=== PATIENT | female | born 1945 | race Caucasian/White ===

== ENCOUNTER 2017-09-06 10:35 | Inpatient (IN) | payer MEDICARE, BC ==
--- NOTE | 2017-09-06 10:37 | EDM.PDOC ---
ED HPI GENERAL MEDICAL PROBLEM - General Chief Complaint: Neurological Problem Stated Complaint: VERY CONFUSED Time Seen by Provider: 09/06/17 10:37 Source of Information: Reports: Patient, Family (), Old Records, RN, RN Notes Reviewed History Limitations: Reports: Altered Mental Status - History of Present Illness INITIAL COMMENTS - FREE TEXT/NARRATIVE: Arrives from home by POV with pt's reporting that he left the house this morning while the pt was still sleeping, and return an hour or so later to find the pt awake but very confused. Pt acknowledges that she is confused. She doesn't know how she got to the hospital, why she is here, or what day it is. states pt did not feel well yesterday, but was not confused when she went to bed. Pt has had a sore throat and congestion for several days. Pt has been taking sudafed for a couple of days. states that he and the pt went on a [employer] cruise and got home a week ago. Shortly after returning home she began to have the congestion and sore throat. Duration: Constant Severity: Severe Improves with: Reports: None Worsens with: Reports: None - Related Data Allergies Allergy/AdvReac Type Severity Reaction Status Date / Time codeine Allergy Nausea and Verified 09/06/17 13:25 Vomiting Home Meds: Home Meds Acetaminophen [Tylenol Extra Strength] 1,000 mg PO Q6HR PRN 10/09/14 [History] Calcium Carbonate/Vitamin D3 [Calcium 500 + Vit D 200 Caplet] 2 tab PO DAILY 05/16 [History] Cetirizine [ZyrTEC] 10 mg PO DAILY 10/09/14 [History] Cholecalciferol (Vitamin D3) [Vitamin D] 1 tab PO DAILY 10/09/14 [History] LORazepam [Ativan] 0.5 mg PO BID PRN 10/09/14 [History] Multivitamin [Multiple Vitamins] 1 tab PO DAILY 10/09/14 [History] Venlafaxine [Effexor] 75 mg PO DAILY 10/09/14 [History] atorvaSTATin [Lipitor] 1 tab PO BEDTIME 10/09/14 [History] Hydrochlorothiazide [Hydrochlorothiazide] 12.5 mg PO DAILY 05/06/15 [History] Esomeprazole Magnesium [Nexium] 40 mg PO DAILY 10/06/15 [History] Past Medical History Other HEENT History: WEARS CORRECTIVE LENSES Other Cardiovascular History: HYPERTRIGYLCERIDEMIA Other Gastrointestinal History: GERD for 10 yrs and taking Nexium 40 mg daily. Other Genitourinary History: ATROPHIC VAGINITIS; DYSPAREUNIA Other Musculoskeletal History: POLYMYALGIA RHEUMATICA; DDD CERVICAL Other Neuro History: MYOFASCIAL PAIN LEFT; NECK PAIN LEFT; HX OF POLYMYALGIA RHEUMATICA Other Oncologic History: DUCTAL CARCINOMA OF BREAST - Past Surgical History Other HEENT Surgeries/Procedures: ADENOIDECTOMY Social & Family History - Tobacco Use Smoking Status *Q: Never Smoker Used Tobacco, but Quit: No Second Hand Smoke Exposure: No - Alcohol Use Days Per Week of Alcohol Use: 1 Number of Drinks Per Day: 1 Total Drinks Per Week: 1 - Recreational Drug Use Recreational Drug Use: No - Living Situation & Occupation Living situation: Reports: , with Spouse Occupation: Retired ED ROS GENERAL - Review of Systems Review Of Systems: ROS reveals no pertinent complaints other than HPI. - Physical Exam Exam: See Below Exam Limited By: Altered Mental Status General Appearance: Alert, No Apparent Distress Eye Exam: Bilateral Eye: EOMI, Normal Fundi, Normal Inspection, PERRL Ears: Normal External Exam, Normal Canal, Hearing Grossly Normal, Normal TMs Nose: No Blood, Other (mild nasal mucosa inflammation with injected inferior turbinates) Throat/Mouth: Normal Lips, Normal Teeth, Other (mild pharyngeal erythema with yellowish postnasal drip) Head Exam: Atraumatic, Normocephalic Neck: Normal Inspection, Supple, Non-Tender, Full Range of Motion, Other (no nuchal rigidity). No: Lymphadenopathy (L), Lymphadenopathy (R) Respiratory/Chest: No Respiratory Distress, Lungs Clear, Normal Breath Sounds, No Accessory Muscle Use, Chest Non-Tender Cardiovascular: Normal Peripheral Pulses, Regular Rate, Rhythm, No Edema, No Gallop, No JVD, No Murmur, No Rub, Tachycardia GI/Abdominal: Normal Bowel Sounds, Soft, Non-Tender, No Organomegaly, No Distention, No Abnormal Bruit (Female) Exam: Deferred Rectal (Female) Exam: Deferred Neuro Exam (Abbreviated): Alert, CN II-XII Intact, No Motor/Sensory Deficits, Confused, Disoriented, Memory Loss Recent Events Back Exam: Normal Inspection, Full Range of Motion. No: CVA Tenderness (L), CVA Tenderness (R) Extremities: Normal Inspection, Normal Range of Motion, Non-Tender, No Pedal Edema, Normal Capillary Refill Psychiatric: Anxious Skin Exam: Warm, Dry, Intact, Normal Color, No Rash Course - Vital Signs Last Recorded V/S: Last Vital Signs Temp 37.2 C 09/06/17 11:59 Pulse 93 09/06/17 11:59 Resp 16 09/06/17 11:59 BP 154/80 H 09/06/17 11:59 Pulse Ox 100 09/06/17 11:59 - Orders/Labs/Meds Orders: Active Orders 24 hr Category Date Time Status Blood Glucose Check, Bedside [] ONETIME Care 09/06/17 10:43 Active EKG 12 Lead [EKG Documentation Completion] [] STAT Care 09/06/17 10:43 Active Peripheral IV Care [] . DIRECTED Care 09/06/17 10:44 Active CULTURE BLOOD [] Stat Lab 09/06/17 11:11 Results CULTURE BLOOD [] Stat Lab 09/06/17 11:32 Received CULTURE STREP A CONFIRMATION [] Stat Lab 09/06/17 10:43 Results STREP SCRN A RAPID W CULT CONF [] Stat Lab 09/06/17 10:43 Results Sodium Chloride 0.9% [Normal Saline] 1,000 ml Med 09/06/17 12:25 Active IV .BOLUS Sodium Chloride 0.9% [Saline Flush] Med 09/06/17 10:43 Active 10 ml FLUSH ASDIRECTED PRN Blood Culture x2 Reflex Set [OM.PC] Stat Oth 09/06/17 10:43 Ordered Peripheral IV Insertion Adult [OM.PC] Stat Oth 09/06/17 10:43 Ordered Medication Orders Sodium Chloride (Normal Saline) 1,000 mls @ 999 mls/hr IV .BOLUS ONE Stop: 09/06/17 13:25 Last Admin: 09/06/17 12:38 Dose: 999 mls/hr Sodium Chloride (Saline Flush) 10 ml FLUSH ASDIRECTED PRN PRN Reason: Keep Vein Open Last Admin: 09/06/17 10:59 Dose: 10 ml Labs: Laboratory Tests 09/06/17 09/06/17 09/06/17 Range/Units 10:45 10:45 10:59 WBC 11.2 H (5.0-10.0) 10^3/uL RBC 4.32 (4.2-5.4) 10^6/uL Hgb 13.8 (12.0-16.0) g/dL Hct 38.3 (37.0-47.0) % MCV 88.7 D (80-100) fL MCH 31.9 (27.0-34.0) pg MCHC 36.0 H (33.0-35.0) g/dL Plt Count 247 (150-450) 10^3/uL Neut % (Auto) 75.6 H (42.2-75.2) % Lymph % (Auto) 18.0 L (20.5-50.1) % [place] % (Auto) 4.9 (2-8) % Eos % (Auto) 1.3 (1.0-3.0) % Baso % (Auto) 0.2 (0.0-1.0) % Sodium 134 L (135-145) mmol/L Potassium 3.7 (3.6-5.0) mmol/L Chloride 99 L (101-111) mmol/L Carbon Dioxide 23.0 (21.0-31.0) mmol/L Anion Gap 15.7 BUN 17 (7-18) mg/dL Creatinine 0.8 (0.6-1.3) mg/dL Est Cr Clr Drug Dosing 51.01 mL/min Estimated GFR (MDRD) > 60 BUN/Creatinine Ratio 21.25 Glucose 164 H (74-105) mg/dL POC Glucose 184 H (83-110) mg/dl Lactic Acid (0.5-2.2) mmol/L Calcium 9.6 (8.4-10.2) mg/dl Magnesium 1.8 (1.8-2.5) mg/dL Total Bilirubin 0.8 (0.2-1.0) mg/dL AST 31 (10-42) IU/L ALT 26 (10-60) IU/L Alkaline Phosphatase 74 (42-121) IU/L Ammonia (11-35) umol/L Creatine Kinase 129 (26-174) IU/L Troponin I < 0.02 (0.00-0.02) ng/ml Total Protein 8.1 (6.7-8.2) g/dl Albumin 4.8 (3.2-5.5) g/dl Globulin 3.3 Albumin/Globulin Ratio 1.45 Urine Color (YELLOW) Urine Appearance (CLEAR) Urine pH (5.0-9.0) Ur Specific [place] (1.005-1.030) Urine Protein (NEGATIVE) Urine Glucose (UA) (NEGATIVE) Urine Ketones (NEGATIVE) Urine Occult Blood (NEGATIVE) Urine Nitrite (NEGATIVE) Urine Bilirubin (NEGATIVE) Urine Urobilinogen (0.2-1.0) mg/dL Ur Leukocyte Esterase (NEGATIVE) Urine RBC /HPF Urine WBC (0-5/HPF) /HPF Ur Epithelial Cells /HPF Amorphous Sediment (0/HPF) /HPF Urine Bacteria (0-FEW/HPF) /HPF Urine Opiates Screen (NEGATIVE) Ur Oxycodone Screen (NEGATIVE) Urine Methadone Screen (NEGATIVE) Ur Barbiturates Screen (NEGATIVE) U Tricyclic Antidepress (NEGATIVE) Ur Phencyclidine Scrn (NEGATIVE) Ur Amphetamine Screen (NEGATIVE) U Methamphetamines Scrn (NEGATIVE) Urine MDMA Screen (NEGATIVE) U Benzodiazepines Scrn (NEGATIVE) Urine Cocaine Screen (NEGATIVE) U Marijuana (THC) Screen (NEGATIVE) Ethyl Alcohol < 5 mg/dL 09/06/17 09/06/17 09/06/17 Range/Units 11:11 11:11 11:29 WBC (5.0-10.0) 10^3/uL RBC (4.2-5.4) 10^6/uL Hgb (12.0-16.0) g/dL Hct (37.0-47.0) % MCV (80-100) fL MCH (27.0-34.0) pg MCHC (33.0-35.0) g/dL Plt Count (150-450) 10^3/uL Neut % (Auto) (42.2-75.2) % Lymph % (Auto) (20.5-50.1) % [place] % (Auto) (2-8) % Eos % (Auto) (1.0-3.0) % Baso % (Auto) (0.0-1.0) % Sodium (135-145) mmol/L Potassium (3.6-5.0) mmol/L Chloride (101-111) mmol/L Carbon Dioxide (21.0-31.0) mmol/L Anion Gap BUN (7-18) mg/dL Creatinine (0.6-1.3) mg/dL Est Cr Clr Drug Dosing mL/min Estimated GFR (MDRD) BUN/Creatinine Ratio Glucose (74-105) mg/dL POC Glucose (83-110) mg/dl Lactic Acid 3.4 H (0.5-2.2) mmol/L Calcium (8.4-10.2) mg/dl Magnesium (1.8-2.5) mg/dL Total Bilirubin (0.2-1.0) mg/dL AST (10-42) IU/L ALT (10-60) IU/L Alkaline Phosphatase (42-121) IU/L Ammonia 26 (11-35) umol/L Creatine Kinase (26-174) IU/L Troponin I (0.00-0.02) ng/ml Total Protein (6.7-8.2) g/dl Albumin (3.2-5.5) g/dl Globulin Albumin/Globulin Ratio Urine Color Yellow (YELLOW) Urine Appearance Slightly cloudy (CLEAR) Urine pH 8.5 (5.0-9.0) Ur Specific [place] 1.015 (1.005-1.030) Urine Protein 100 H (NEGATIVE) Urine Glucose (UA) Negative (NEGATIVE) Urine Ketones Trace H (NEGATIVE) Urine Occult Blood Small H (NEGATIVE) Urine Nitrite Negative (NEGATIVE) Urine Bilirubin Negative (NEGATIVE) Urine Urobilinogen 0.2 (0.2-1.0) mg/dL Ur Leukocyte Esterase Small H (NEGATIVE) Urine RBC 10-20 H /HPF Urine WBC 5-10 H (0-5/HPF) /HPF Ur Epithelial Cells Rare /HPF Amorphous Sediment Few (0/HPF) /HPF Urine Bacteria Few (0-FEW/HPF) /HPF Urine Opiates Screen (NEGATIVE) Ur Oxycodone Screen (NEGATIVE) Urine Methadone Screen (NEGATIVE) Ur Barbiturates Screen (NEGATIVE) U Tricyclic Antidepress (NEGATIVE) Ur Phencyclidine Scrn (NEGATIVE) Ur Amphetamine Screen (NEGATIVE) U Methamphetamines Scrn (NEGATIVE) Urine MDMA Screen (NEGATIVE) U Benzodiazepines Scrn (NEGATIVE) Urine Cocaine Screen (NEGATIVE) U Marijuana (THC) Screen (NEGATIVE) Ethyl Alcohol mg/dL 09/06/17 Range/Units 11:29 WBC (5.0-10.0) 10^3/uL RBC (4.2-5.4) 10^6/uL Hgb (12.0-16.0) g/dL Hct (37.0-47.0) % MCV (80-100) fL MCH (27.0-34.0) pg MCHC (33.0-35.0) g/dL Plt Count (150-450) 10^3/uL Neut % (Auto) (42.2-75.2) % Lymph % (Auto) (20.5-50.1) % [place] % (Auto) (2-8) % Eos % (Auto) (1.0-3.0) % Baso % (Auto) (0.0-1.0) % Sodium (135-145) mmol/L Potassium (3.6-5.0) mmol/L Chloride (101-111) mmol/L Carbon Dioxide (21.0-31.0) mmol/L Anion Gap BUN (7-18) mg/dL Creatinine (0.6-1.3) mg/dL Est Cr Clr Drug Dosing mL/min Estimated GFR (MDRD) BUN/Creatinine Ratio Glucose (74-105) mg/dL POC Glucose (83-110) mg/dl Lactic Acid (0.5-2.2) mmol/L Calcium (8.4-10.2) mg/dl Magnesium (1.8-2.5) mg/dL Total Bilirubin (0.2-1.0) mg/dL AST (10-42) IU/L ALT (10-60) IU/L Alkaline Phosphatase (42-121) IU/L Ammonia (11-35) umol/L Creatine Kinase (26-174) IU/L Troponin I (0.00-0.02) ng/ml Total Protein (6.7-8.2) g/dl Albumin (3.2-5.5) g/dl Globulin Albumin/Globulin Ratio Urine Color (YELLOW) Urine Appearance (CLEAR) Urine pH (5.0-9.0) Ur Specific [place] (1.005-1.030) Urine Protein (NEGATIVE) Urine Glucose (UA) (NEGATIVE) Urine Ketones (NEGATIVE) Urine Occult Blood (NEGATIVE) Urine Nitrite (NEGATIVE) Urine Bilirubin (NEGATIVE) Urine Urobilinogen (0.2-1.0) mg/dL Ur Leukocyte Esterase (NEGATIVE) Urine RBC /HPF Urine WBC (0-5/HPF) /HPF Ur Epithelial Cells /HPF Amorphous Sediment (0/HPF) /HPF Urine Bacteria (0-FEW/HPF) /HPF Urine Opiates Screen Negative (NEGATIVE) Ur Oxycodone Screen Negative (NEGATIVE) Urine Methadone Screen Negative (NEGATIVE) Ur Barbiturates Screen Negative (NEGATIVE) U Tricyclic Antidepress Negative (NEGATIVE) Ur Phencyclidine Scrn Negative (NEGATIVE) Ur Amphetamine Screen Positive H (NEGATIVE) U Methamphetamines Scrn Negative (NEGATIVE) Urine MDMA Screen Negative (NEGATIVE) U Benzodiazepines Scrn Positive H (NEGATIVE) Urine Cocaine Screen Negative (NEGATIVE) U Marijuana (THC) Screen Negative (NEGATIVE) Ethyl Alcohol mg/dL Meds: Medications Generic Name Dose Route Start Last Admin Trade Name Freq PRN Reason Stop Dose Admin Sodium Chloride 1,000 mls @ 999 mls/hr 09/06/17 12:25 09/06/17 12:38 Normal Saline IV 09/06/17 13:25 999 mls/hr .BOLUS ONE Administration Sodium Chloride 10 ml 09/06/17 10:43 09/06/17 10:59 Saline Flush FLUSH 10 ml ASDIRECTED PRN Administration Keep Vein Open Discontinued Medications Generic Name Dose Route Start Last Admin Trade Name Freq PRN Reason Stop Dose Admin Ceftriaxone Sodium 1 gm 09/06/17 12:25 09/06/17 12:38 Rocephin IVPUSH 09/06/17 12:26 1 gm ONETIME ONE Administration - Radiology Interpretation Free Text/Narrative:: CT Head: no acute findings per Rad. report. CT Results Date: 09/06/17 Departure - Departure Time of Disposition: 12:40 (admit to Dr. Melissa) Disposition: Refer to Observation Condition: Undetermined Clinical Impression: Altered mental status, unspecified Qualifiers: Altered mental status type: disorientation Qualified Code(s): R41.0 - Disorientation, unspecified - Discharge Information - My Orders Last 24 Hours: My Active Orders 09/06/17 10:43 Blood Glucose Check, Bedside [] ONETIME EKG 12 Lead [EKG Documentation Completion] [RC] STAT CULTURE STREP A CONFIRMATION [RM] Stat STREP SCRN A RAPID W CULT CONF [RM] Stat Sodium Chloride 0.9% [Saline Flush] 10 ml FLUSH ASDIRECTED PRN Blood Culture x2 Reflex Set [OM.PC] Stat Peripheral IV Insertion Adult [OM.PC] Stat 09/06/17 10:44 Peripheral IV Care [RC] . DIRECTED 09/06/17 11:11 CULTURE BLOOD [BC] Stat 09/06/17 11:32 CULTURE BLOOD [BC] Stat 09/06/17 12:25 Sodium Chloride 0.9% [Normal Saline] 1,000 ml IV .BOLUS - Assessment/Plan Last 24 Hours: My Active Orders 09/06/17 10:43 Blood Glucose Check, Bedside [RC] ONETIME EKG 12 Lead [EKG Documentation Completion] [RC] STAT CULTURE STREP A CONFIRMATION [RM] Stat STREP SCRN A RAPID W CULT CONF [] Stat Sodium Chloride 0.9% [Saline Flush] 10 ml FLUSH ASDIRECTED PRN Blood Culture x2 Reflex Set [OM.PC] Stat Peripheral IV Insertion Adult [OM.PC] Stat 09/06/17 10:44 Peripheral IV Care [RC] . DIRECTED 09/06/17 11:11 CULTURE BLOOD [BC] Stat 09/06/17 11:32 CULTURE BLOOD [BC] Stat 09/06/17 12:25 Sodium Chloride 0.9% [Normal Saline] 1,000 ml IV .BOLUS
[2017-09-06] MEDS: Sodium Chloride 0.9% 10 ML Syringe FLUSH PRN (10:59)
--- NOTE | 2017-09-06 11:35 | CT ---
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 No known trau ma. Scan technique: Volume acquisition of data unenhanced CT scan of the head and brain obtained with pat iekody lying supine on the Siemens multi slice scanner [place], [place]. All data archived in the PACS system for storage and study (bone/brain windows). Interpretation: 1. Dependent air-fluid levels in the maxillary antra bilaterally. Nasal septum is straight in the mid line. Frontal, ethmoid, sphenoid and mastoid sinuses are symmetrically pneumatized without inflammato ry change of a mass or bony wall destruction. 2. Uniformly thick bony calvarium. No sign of supratentorial or posterior fossa mass lesion. No hydro cephalus. 3. No focal areas of ischemic infarct this patient with symmetric johnson-white matter pattern. 4. No sign of acute intracerebral/intraventricular/subarachnoid bleed. 5. No abnormal extracerebral/intracranial epidural or subdural hematomas. 6. Cerebellum and brainstem unremarkable. CONCLUSION: Acute bilateral maxillary sinusitis. No sign of intracranial mass, hydrocephalus or infar ct (ischemic/hemorrhagic) and
[2017-09-06 12:00] LABS: CHLORIDE,CL 99 mmol/L (101-111); SODIUM,NA 134 mmol/L (135-145)
--- NOTE | 2017-09-06 12:21 | CR ---
CLINICAL HISTORY: 72-year-old female with severely altered mental status and cough. Emergency CT scan of the head "unremarkable". INTERPRETATION: No acute cardiopulmonary abnormality. Faint atheromatous calcifications arch of the aorta. Normal cardiac silhouette. No cephalization of flow, signs of alveolar edema or dependent pleural eff usion. No lung mass or hilar lymphadenopathy. No focal lobar pneumonia. No atelectasis/collapse. No pneumothorax.
[2017-09-06] MEDS ORDERED: cefTRIAXone 1 GM Vial IVPUSH ONE (12:25)
[2017-09-06] MEDS ORDERED: Sodium Chloride 0.9% 1,000 ML IV ONE (12:25)
[2017-09-06] MEDS ORDERED: Morphine 2 MG/ML Syringe IVPUSH PRN (14:09)
[2017-09-06] MEDS ORDERED: Acetaminophen/oxyCODONE 325-5 MG Tab PO PRN (14:09)
[2017-09-06] MEDS ORDERED: fentaNYL 100 MCG/2 ML SDV IVPUSH ONE (14:42)
--- NOTE | 2017-09-06 15:38 | PCM.SN ---
- Free Text/Narrative Note: Lumbar Puncture. requesting lumbar puncture related to altered mental status and Headache. Informed consent obtained from Pt's and Patient. Pt medicated w 25 mcg fentanyl. sitting position, 1% lidocaine to L3 L4 interspace and L2 L3 interspace. Unable to direct 24 ga needle, 22 gauge needle x 2 to L3 L4 interspace and x 2 to L2 L3 interspace x 2. Pos CSF, neg heme, neg parasthesia at L2 L3 interspace. Opening pressure at 36 cm in sitting position. CSF clear. 4 vials of CSF obtained for a total of 17 ml of fluid. Needle removed, site dressed w bandaid after hemostasis. Pt tolerated well. Pt assisted to supine position and medicated with 25 mcg of fentanyl for persistent headache. Procedure time 1455 to 1515.
[2017-09-06] MEDS: Acetaminophen 325 MG Tab PO PRN (16:14)
[2017-09-06] MEDS: Ondansetron 4 MG Tab.DIS PO PRN ×2 (17:05→20:42)
[2017-09-06] MEDS: Sodium Chloride 0.9% 1,000 ML IV SCH (17:07)
--- NOTE | 2017-09-06 21:20 | HP ---
CHIEF COMPLAINT: Increased confusion. HISTORY OF PRESENTING ILLNESS: Mrs. Cynthia Cotto is a 72-year-old female with medical history significant for ductal carcinoma in situ of the breast, status post radiation treatment, presented to the ER today with complaints of having confusion. She was brought in by her who was concerned about her health as she appeared to be more confused and not feeling well for the last 2 to 3 days. The patient had extensive workup done in the emergency room including a CT scan of the head which showed evidence of sinusitis, but no acute intracranial pathology, and she was also noted to have lactic acidosis and was admitted to the hospital for further work up. At this time, the patient is awake and alert. She is able to recognize her at bedside. She is able to tell she is at the hospital and this is September, but she thinks this is 2009. She does not remember anything in the last 2 to 3 days what happened. She knows she was on the cruise ship, but she does not have any clue that she was at [facility] yesterday and she does not know what happened yesterday. As per the , they were in the cruise for 3 weeks and they came back last week to their home. She did not feel sick while on the cruise ship. She did not encounter any sick contacts while on the cruise ship. They visited [place]. She denied any fevers or chills in the last few days, but complains of having headache which is mostly in the frontal region. She grades the headache as 3 to 4/10 in intensity. No clear aggravating factors. No clear relieving factors. She also complains of some mild neck pain, but no neck stiffness. No photophobia at this time. She denies any chest pain. No shortness of breath. She complains of having cough leading to sore throat like feeling. She denied any abdominal pain. She denies any nausea, vomiting, or diarrhea in the last few days. The patient denied any history of chest pains on exertion. No history of dyspnea on exertion. No history of orthopnea or paroxysmal nocturnal dyspnea. The patient denied any history of hematemesis, hematochezia, or melenic stools. Normal bowel and bladder habits otherwise. REVIEW OF SYSTEMS: Hard to obtain at this point as the patient seems to be confused, unsure about the reliability of her history at this time. PAST MEDICAL HISTORY: Significant for: 1. Ductal carcinoma in situ. 2. History of urinary tract infection. 3. Gastroesophageal reflux disease. 4. Hyperlipidemia. 5. Hypertension. 6. Fibromyalgia. PAST SURGICAL HISTORY: Significant for laparoscopic tubal ligation and C- section. FAMILY HISTORY: Significant for cancer in her mother, who is at this time. SOCIAL HISTORY: No history of tobacco use. History of occasional alcohol intake. ALLERGIES: The patient noted to have allergies to codeine and environmental allergies. HOME MEDICATIONS: 1. Effexor 75 mg twice a day. 2. Hydrochlorothiazide 12.5 mg daily. 3. Tylenol 1000 mg every 6 hours as needed. 4. Cetirizine 10 mg daily. 5. Ativan 0.5 mg twice a day as needed. 6. Nexium 40 mg daily. 7. Multivitamin 1 tablet daily. 8. Lipitor 2 tablets at bedtime. PHYSICAL EXAMINATION: Vital Signs: Temperature of 97.8, pulse of 84, blood pressure 155/86, respiratory rate of 20, saturating at 100% on room air. General Appearance: The patient is awake and alert, but not completely oriented to time, place, and person. Cardiovascular System: S1, S2 heard with normal intensity. No gallops. Respiratory System: Clear to auscultation bilaterally. No wheeze. No crepitations. Abdomen: Soft. Bowel sounds positive. Nontender. No rigidity. Extremities: No edema in bilateral lower extremities. Neurology: No gross focal neurological deficits. LABORATORY DATA: WBC 11.2, hemoglobin 13.8, hematocrit 38.3, platelet count 247. Sodium 134, potassium 3.7, chloride 99, bicarb 23, BUN 17, creatinine 0.8, glucose 164, lactic acid 3.4, magnesium 1.8. AST 31, ALT 26, alkaline phosphatase 74. Ammonia 26. Troponin less than 0.02. Urinalysis shows small leukocyte esterase, 10 to 20 rbc's, 5 to 10 wbc's, and few bacteria. Urine toxicology screen positive for amphetamine and benzodiazepine. ASSESSMENT: 1. Acute encephalopathy. 2. Hypertension. 3. Hyperlipidemia. 4. Fibromyalgia. PLAN: 1. Acute encephalopathy. The patient presents with acute encephalopathy, exact etiology is not clear. Her urinalysis is not suggestive of any acute urinary tract infection. Chest x-ray looks benign. CT scan of the head did not show any acute intracranial pathology except for sinusitis. Given her confusion for the last 3 days and leukocytosis and lactic acidosis, one has to think of possible meningitis though she lacks evidence of any photophobia or neck rigidity at this time. I will try to do a lumbar puncture at this time. We will keep her under droplet isolation. We will follow the CSF analysis and start her on antibiotics as appropriate. We will keep her hydrated with IV fluids. 2. Sinusitis. The patient is noted to have acute sinusitis, but hard to believe that this is leading to her confusion. The patient was on cough medications, unsure if that is leading to any medication interactions as she is noted to be on Ativan, which is possible, but we will closely follow. Keep her hydrated with IV fluids. 3. Hypertension. The patient's blood pressure seems to be in acceptable range. Continue with current antihypertensive medications. 4. Hyponatremia. This is mild in nature. Could be resulting from hydrochlorothiazide use. We will have her on IV normal saline. Recheck a basic metabolic panel in a.m. 5. DVT prophylaxis. We will have her on Lovenox for DVT prophylaxis once we have the lumbar puncture obtained. 6. Code status. The patient wants to be full code. Discussed with family members at bedside. Discussed with Dr. Cates regarding the plan of care. Reviewed the labs and medications. Reviewed the old charts. [facility] /[id number]
[2017-09-06] MEDS: atorvaSTATin 20 MG Tab PO SCH (23:04)
[2017-09-06] MEDS: LORazepam 0.5 MG Tab PO PRN (23:05)
[2017-09-07] MEDS: Acetaminophen 325 MG Tab PO PRN ×3 (01:41→15:04)
[2017-09-07] MEDS: Sodium Chloride 0.9% 1,000 ML IV SCH ×3 (01:44→22:16)
[2017-09-07] MEDS: Omeprazole 20 MG Cap.CR PO SCH (06:02)
[2017-09-07 07:19] LABS: CHLORIDE,CL 100 mmol/L (101-111); SODIUM,NA 133 mmol/L (135-145)
[2017-09-07] MEDS ORDERED: Hydrochlorothiazide 25 MG Tab PO SCH (09:00)
[2017-09-07] MEDS: Ondansetron 4 MG Tab.DIS PO PRN (09:19)
[2017-09-07] MEDS: Enoxaparin 40 MG/0.4 ML Syringe SUBCUT SCH (09:23)
[2017-09-07] MEDS: LORazepam 0.5 MG Tab PO PRN (09:38)
[2017-09-07] MEDS: Loratadine 10 MG Tab PO SCH (11:01)
[2017-09-07] MEDS: Calcium Carbonate/Vitamin D3 1250 MG-200 Unit Tab PO SCH (11:43)
[2017-09-07] MEDS: Multivitamins,Therapeutic Tab PO SCH (11:44)
[2017-09-07] MEDS: Cholecalciferol (Vitamin D3) 400 Unit Tab PO SCH (11:44)
[2017-09-07] MEDS: guaiFENesin/Dextromethorphan 100-10 MG/5 ML Soln 5 ML Cup PO PRN ×2 (12:26→17:57)
[2017-09-07] MEDS: Potassium Chloride 10 MEQ Tab.ER PO SCH ×2 (12:27→17:59)
[2017-09-07] MEDS: diphenhydrAMINE 50 MG/ML SDV IVPUSH PRN ×2 (12:27→18:00)
[2017-09-07] MEDS: Pantoprazole 40 MG Vial IVPUSH SCH (12:28)
[2017-09-07] MEDS ORDERED: LORazepam 1 MG Tab PO PRN (12:39)
[2017-09-07] MEDS ORDERED: cefTRIAXone 2 GM Vial IVPUSH SCH (13:00)
[2017-09-07] MEDS: Ondansetron 4 MG/2 ML SDV IV SCH ×2 (13:16→22:17)
--- NOTE | 2017-09-07 13:49 | PN ---
DATE: 09/07/2017 SUBJECTIVE: Mrs. Cynthia Cotto is a 72-year-old female with medical history significant for ductal carcinoma in situ of the breast, status post radiation treatment, admitted with acute encephalopathy and noted to have acute sinusitis as per the CT scan of the head. For the last 24 hours, the patient underwent lumbar puncture and further analysis of the CSF was benign without any evidence of meningitis as per the CSF analysis. She continues to have headache, which is mostly on the frontal side and she continues to have sinusitis. She also complains of nausea and is unable to tolerate any oral pills. She complains of having dizziness on ambulation. She denies any chest pain. No shortness of breath. No abdominal pain. She continues to have mild confusion, though improved from yesterday. She denies any diarrhea. No complaints of nausea or vomiting. No complaints of changes in her vision. No complaints of tingling or numbness to her extremities or increased weakness to her extremities. Denies any difficulty swallowing. REVIEW OF SYSTEMS: Cardiovascular, respiratory, gastrointestinal, neurology, constitutional were all evaluated. PHYSICAL EXAMINATION: Vital Signs: Temperature of 97.8, pulse of 86, blood pressure of 172/86, respiratory rate of 20, saturating at 100% on room air. General Appearance: The patient is well oriented to time, place, and person. Follows commands spontaneously. Cardiovascular System: S1 and S2 heard with normal intensity. No gallops. Respiratory System: Clear to auscultation bilaterally. No wheeze. No crepitations. Abdomen: Soft. Bowel sounds positive. Nontender. No rigidity. Extremities: No edema bilateral in lower extremities. Neurologic: No gross focal neurological deficits. MEDICATIONS: Reviewed. Continue with: 1. Tylenol 650 every 4 hours as needed for pain. 2. Lipitor 40 mg at bedtime. 3. Calcium carbonate and vitamin D, 2 tablets daily. 4. Ceftriaxone 2 g IV daily. 5. Robitussin 10 mL q.6 hours as needed. 6. Benadryl 25 mg IV q.6 hours as needed for congestion. 7. Lovenox 40 mg subcutaneous daily. 8. Claritin 10 mg daily. 9. Ativan 0.5 mg twice a day as needed. 10.Morphine 2 mg IV q.2 hours as needed for severe pain. 11.Zofran 4 mg IV q.8 hours as needed for nausea, vomiting. 12.Protonix 40 mg IV daily. 13.Potassium chloride 20 mEq oral twice a day. LABORATORY DATA: WBC 9.9, hemoglobin 12.3, hematocrit 34, platelet count 222. Sodium 133, potassium 3.1, chloride 100, bicarb 23, BUN 10, creatinine 0.6, glucose 106. ASSESSMENT: 1. Acute encephalopathy. 2. Hyponatremia. 3. Hypokalemia. 4. Hypertension. 5. Acute sinusitis. PLAN: 1. Acute encephalopathy: The patient was admitted with acute encephalopathy. Exact etiology is not clear at this time. Could be resulting from medication induced, but her electrolyte seems to be in acceptable range, and the patient does not have any evidence of meningitis. CT scan of the head did not show any acute pathology. We will order for an MRI scan of the brain with and without contrast for further evaluation. The patient does not have any focal neurological deficits. The patient denies any changes in the vision. She does not have any increased weakness to her extremities. Closely follow. 2. Acute sinusitis: The patient noted to have the severe headache and CT scan of the head showed some evidence of sinusitis. The patient is currently on IV antibiotics. Continue the same. Keep her hydrated with IV fluids. 3. Hypertension, uncontrolled: The patient noted to have elevated blood pressure. This could be resulting from the stress. We will have her clonidine 0.1 mg as needed for systolic blood pressure greater than 160. 4. Nausea: The patient complains of increasing nausea and congestion. The patient is unable to tolerate any oral intake. We will have her on IV Protonix and IV medications. Just complaining of increasing nausea. Continue with the IV Zofran. 5. DVT prophylaxis: Continue with Lovenox for DVT prophylaxis. 6. Hypokalemia: We will replace with oral potassium chloride. 7. Hyponatremia: Could be resulting from pain. We will have her on IV normal saline. We will recheck a basic metabolic panel in a.m. [facility] /[id number]
[2017-09-07] MEDS: cloNIDine 0.1 MG Tab PO PRN (20:28)
[2017-09-07] MEDS: Sodium Chloride 0.9% 10 ML Syringe FLUSH PRN (20:31)
[2017-09-07] MEDS: atorvaSTATin 20 MG Tab PO SCH (22:08)
[2017-09-08] MEDS: guaiFENesin/Dextromethorphan 100-10 MG/5 ML Soln 5 ML Cup PO PRN ×2 (00:51→09:23)
[2017-09-08] MEDS: Ondansetron 4 MG/2 ML SDV IV SCH ×3 (05:59→21:47)
[2017-09-08] MEDS: Sodium Chloride 0.9% 10 ML Syringe FLUSH PRN (05:59)
[2017-09-08] MEDS: Omeprazole 20 MG Cap.CR PO SCH (06:07)
[2017-09-08 07:35] LABS: CHLORIDE,CL 104 mmol/L (101-111); SODIUM,NA 135 mmol/L (135-145)
[2017-09-08] MEDS: Pantoprazole 40 MG Vial IVPUSH SCH (09:23)
[2017-09-08] MEDS: Potassium Chloride 10 MEQ Tab.ER PO SCH ×2 (09:23→17:28)
[2017-09-08] MEDS: Loratadine 10 MG Tab PO SCH (09:24)
[2017-09-08] MEDS: Calcium Carbonate/Vitamin D3 1250 MG-200 Unit Tab PO SCH (09:24)
[2017-09-08] MEDS: Multivitamins,Therapeutic Tab PO SCH (09:24)
[2017-09-08] MEDS: Cholecalciferol (Vitamin D3) 400 Unit Tab PO SCH (09:24)
[2017-09-08] MEDS: Enoxaparin 40 MG/0.4 ML Syringe SUBCUT SCH (09:25)
[2017-09-08] MEDS: Amoxicillin/Clavulanate K 875-125 MG Tab PO SCH ×2 (11:00→22:12)
[2017-09-08] MEDS: Sodium Chloride 0.9% 1,000 ML IV SCH (11:35)
--- NOTE | 2017-09-08 12:21 | PN ---
DATE: 09/08/2017 SUBJECTIVE: Mrs. Kirti Marie is a 72-year-old female with medical history significant for ductal carcinoma in situ of the breast, status post radiation treatment, admitted with acute encephalopathy and noted to have acute sinusitis. For the last 24 hours, the patient had an MRI scan of the brain which did not show any acute pathology. Her mentation has much improved. She continues to have mild headache, mostly on the frontal region. She is expressing out thick phlegm from the sinuses. She denies any chest pain. No shortness of breath. No abdominal pain. No nausea. No vomiting. No diarrhea. REVIEW OF SYSTEMS: Cardiovascular, respiratory, gastrointestinal, neurology, constitutional were all evaluated. PHYSICAL EXAMINATION: Vital Signs: Temperature of 98.8, pulse of 82, blood pressure 133/65, respiratory rate of 20, and saturating at 99% on room air. General Appearance: The patient is well oriented to time, place, and person. Follows commands spontaneously. Cardiovascular System: S1 and S2 heard with normal intensity. No gallops. Respiratory System: Clear to auscultation bilaterally. No wheeze. No crepitations. Abdomen: Soft. Bowel sounds positive. Nontender. No rigidity. Extremities: No edema in bilateral lower extremities. Neurology: No gross focal neurological deficit. MEDICATIONS: Reviewed. Continue with: 1. Tylenol 650 every 4 hours as needed for pain. 2. Augmentin every 12 hours. 3. Lipitor 5 mg at bedtime. 4. Vitamin D 1000 units daily. 5. Clonidine 0.1 mg every 8 hours as needed for systolic blood pressure greater than 150. 6. Benadryl 25 mg IV q.6 hours as needed. 7. Lovenox 40 mg subcutaneous daily. 8. Claritin 10 mg daily. 9. Ativan 1 mg every 6 hours as needed. 10.Morphine 2 mg IV every 2 hours as needed for pain. 11.Omeprazole 40 mg daily. 12.Zofran 4 mg IV q.8 hours as needed for nausea. 13.Protonix 40 mg IV daily. 14.Potassium chloride 20 mEq twice a day. LABORATORY DATA: 1. WBC 5.3, hemoglobin 10.8, hematocrit 30.7, and platelet count of 204. 2. Sodium 135, potassium 3.8, chloride 104, bicarb 24, BUN 10, creatinine 0.7, and glucose 103. MICROBIOLOGY: Culture shows no growth so far. ASSESSMENT: 1. Acute encephalopathy, resolved. 2. Acute sinusitis, on antibiotics. 3. Hyponatremia, improved. 4. Hypokalemia, improved. 5. Hypertension. PLAN: 1. Acute encephalopathy, resolved. The patient was admitted with acute encephalopathy, most probably from medication interaction, as she was taking cough medication along with Ativan. The patient had a CT scan of the brain and also an MRI scan of the brain, which did not show an acute pathology. She has acute sinusitis. 2. Acute sinusitis. The patient was treated with IV antibiotic, with a meropenem. We will switch her to oral antibiotic with Augmentin at this time. We will closely follow. We will encourage the patient to have steam inhalation to improve drainage from the sinuses. 3. Hypertension. The patient started on clonidine as needed. We will continue the same. Her blood pressure seems to be improving at this time. 4. DVT prophylaxis. Continue with Lovenox for DVT prophylaxis. 5. Electrolyte imbalance. The patient was noted to have hyponatremia and hypokalemia. She is tolerating IV fluids well. We will continue with IV normal saline at 75 mL/h. Continue with oral potassium chloride. We will recheck a basic metabolic panel in the a.m. Discussed with family members at bedside. [facility] /[id number]
--- NOTE | 2017-09-08 13:43 | EKG ---
- ANDREW STEELE - This 12-lead EKG shows normal sinus rhythm with heart rate of 90. No significant ST elevation or ST depression noted on this 12-lead EKG. [facility] /[id number]
[2017-09-08] MEDS: Ondansetron 4 MG Tab.DIS PO PRN (20:07)
[2017-09-08] MEDS: LORazepam 0.5 MG Tab PO PRN (22:12)
[2017-09-08] MEDS: atorvaSTATin 20 MG Tab PO SCH (22:16)
[2017-09-08] MEDS: cloNIDine 0.1 MG Tab PO PRN (23:01)
[2017-09-09] MEDS: Sodium Chloride 0.9% 1,000 ML IV SCH (00:50)
[2017-09-09] MEDS: Ondansetron 4 MG/2 ML SDV IV SCH ×3 (05:41→21:38)
[2017-09-09] MEDS: Sodium Chloride 0.9% 10 ML Syringe FLUSH PRN ×2 (05:43→21:38)
[2017-09-09] MEDS: Omeprazole 20 MG Cap.CR PO SCH (05:45)
[2017-09-09 07:04] LABS: CHLORIDE,CL 99 mmol/L (101-111); SODIUM,NA 130 mmol/L (135-145)
[2017-09-09] MEDS: Loratadine 10 MG Tab PO SCH (08:30)
[2017-09-09] MEDS: Multivitamins,Therapeutic Tab PO SCH (08:30)
[2017-09-09] MEDS: Amoxicillin/Clavulanate K 875-125 MG Tab PO SCH (08:30)
[2017-09-09] MEDS: Potassium Chloride 10 MEQ Tab.ER PO SCH (08:31)
[2017-09-09] MEDS: Cholecalciferol (Vitamin D3) 400 Unit Tab PO SCH (08:32)
[2017-09-09] MEDS: Enoxaparin 40 MG/0.4 ML Syringe SUBCUT SCH (08:37)
[2017-09-09] MEDS: Calcium Carbonate/Vitamin D3 1250 MG-200 Unit Tab PO SCH (08:51)
[2017-09-09] MEDS: Pantoprazole 40 MG Vial IVPUSH SCH (08:52)
[2017-09-09] MEDS: Ondansetron 4 MG Tab.DIS PO PRN (10:55)
[2017-09-09] MEDS: Piperacillin/Tazobactam 3.375 GM in Sodium Chloride 0.9% 100 ML IV SCH ×2 (12:48→19:11)
--- NOTE | 2017-09-09 13:16 | PN ---
DATE: 09/09/2017 SUBJECTIVE: Mrs. Kirti Marie is a 72-year-old female admitted with acute encephalopathy and noted to have acute sinusitis. For the last 24 hours, the patient's headache seems to be improving. She continues to feel nauseated. She is unable to tolerate any oral pills including Augmentin and the potassium chloride tablet. She had a mild episode of vomiting earlier today. She denies any ongoing chest pains. No shortness of breath. Complains of abdominal discomfort from nausea and vomiting. Denies any dizziness upon ambulation. REVIEW OF SYSTEMS: Cardiovascular, respiratory, gastrointestinal, neurology, constitutional were all evaluated. PHYSICAL EXAMINATION: Vital Signs: Temperature of 98.6, pulse of 68, blood pressure of 130/70, respiratory rate of 18, and saturating at 98% on room air. Overnight, her blood pressure was in the range of 180/82. General Appearance: The patient is well oriented to time, place, and person. Follows commands spontaneously. Cardiovascular System: S1 and S2 heard with normal intensity. No gallops. Respiratory System: Clear to auscultation bilaterally. No wheeze. No crepitations. Abdomen: Soft. Bowel sounds positive. Nontender. No rigidity. Extremities: No edema in bilateral lower extremities. MEDICATIONS: Reviewed. Continue the same. LABORATORY DATA: 1. WBC 5.3, hemoglobin 11.3, hematocrit 32.1, and platelet count 212. 2. Sodium 130, potassium 3.5, chloride 99, bicarb 22. BUN 11, creatinine 0.6, glucose 109. ASSESSMENT: 1. Acute sinusitis. 2. Acute encephalopathy. 3. Hypertension. 4. Hyponatremia. 5. Hypokalemia. PLAN: 1. Acute encephalopathy, resolved. This is most probably from medication interactions. We did CT scan of the brain and also an MRI scan of the brain which did not show any acute pathology. 2. Acute sinusitis. The patient was started on oral Augmentin, but she is unable to tolerate oral Augmentin secondary to nausea and vomiting. We will switch to IV Zosyn for now, and we will closely follow. 3. Hypertension. The patient continues to have elevated blood pressure. She was on hydrochlorothiazide, but this is currently on hold secondary to electrolyte imbalance. She is on clonidine 0.1 mg as needed for systolic blood pressure greater than 160. We will discontinue the IV fluids for now. We will closely follow. Use clonidine as needed. 4. DVT prophylaxis. Continue with Lovenox for DVT prophylaxis. 5. Hypokalemia. The patient is unable to tolerate oral potassium chloride tablets. We will switch to oral potassium chloride solution for better tolerance. 6. Nausea and vomiting. She has been receiving Zofran. She continues to have vomiting. We will have her on IV Reglan for now, scheduled dose, to decrease her nausea and vomiting symptoms. 7. Recheck a CBC and a BMP in the a.m. [facility] /[id number]
[2017-09-09] MEDS: Metoclopramide 10 MG/2 ML SDV IVPUSH SCH ×2 (15:21→21:37)
[2017-09-09] MEDS: Potassium Chloride 10% 20 MEQ/15 ML Soln 15 ML UD Cup PO SCH (19:12)
[2017-09-09] MEDS: atorvaSTATin 20 MG Tab PO SCH (21:32)
[2017-09-09] MEDS: LORazepam 0.5 MG Tab PO PRN (21:33)
[2017-09-10] MEDS: Piperacillin/Tazobactam 3.375 GM in Sodium Chloride 0.9% 100 ML IV SCH ×4 (00:30→18:35)
[2017-09-10] MEDS: Sodium Chloride 0.9% 10 ML Syringe FLUSH PRN ×4 (00:31→21:32)
[2017-09-10] MEDS: Omeprazole 20 MG Cap.CR PO SCH (05:22)
[2017-09-10] MEDS: Ondansetron 4 MG/2 ML SDV IV SCH ×3 (05:26→21:43)
[2017-09-10] MEDS: Metoclopramide 10 MG/2 ML SDV IVPUSH SCH ×3 (05:26→21:34)
[2017-09-10 07:05] LABS: CHLORIDE,CL 101 mmol/L (101-111); SODIUM,NA 133 mmol/L (135-145)
[2017-09-10] MEDS: Loratadine 10 MG Tab PO SCH (09:05)
[2017-09-10] MEDS: Multivitamins,Therapeutic Tab PO SCH (09:05)
[2017-09-10] MEDS: Potassium Chloride 10% 20 MEQ/15 ML Soln 15 ML UD Cup PO SCH ×2 (09:05→18:35)
[2017-09-10] MEDS: Cholecalciferol (Vitamin D3) 400 Unit Tab PO SCH (09:06)
[2017-09-10] MEDS: Calcium Carbonate/Vitamin D3 1250 MG-200 Unit Tab PO SCH (09:09)
[2017-09-10] MEDS: Enoxaparin 40 MG/0.4 ML Syringe SUBCUT SCH (09:09)
[2017-09-10] MEDS: Pantoprazole 40 MG Vial IVPUSH SCH (09:10)
--- NOTE | 2017-09-10 15:27 | PN ---
DATE: 09/10/2017 HISTORY OF PRESENT ILLNESS: Mrs. Kirti Marie is a 72-year-old female, who was admitted with acute encephalopathy and acute sinusitis. For the last 24 hours, the patient symptoms have much improved. She had one episode of vomiting. She denies any chest pains. No shortness of breath. No abdominal pain. She is able to tolerate breakfast well this morning. Her headache seems to be improved. REVIEW OF SYSTEMS: Cardiovascular, respiratory, gastrointestinal, neurology, constitutional were all evaluated. PHYSICAL EXAMINATION: Vital Signs: Temperature of 98.6, pulse of 72, blood pressure 155/73, respiratory rate 18, saturating at 100% on room air. General Appearance: Patient is well oriented to time, place, and person. Follows commands spontaneously. Cardiovascular System: S1, S2 heard with normal intensity. No gallops. Respiratory System: Clear to auscultation bilaterally. No wheeze. No crepitations. Abdomen: Soft. Bowel sounds positive. Nontender. No rigidity. Extremities: No edema in bilateral lower extremities. Neurology: No gross focal neurological deficits. MEDICATIONS: Reviewed. Continue the same. LABORATORY DATA: WBC 6.6, hemoglobin 11.4, hematocrit 31.5, platelet count 224. Sodium 133 potassium 3.7, chloride 101, bicarb 24, BUN 13, creatinine 0.7. ASSESSMENT: 1. Acute encephalopathy, resolved. 2. Acute sinusitis, improved with IV antibiotics. 3. Nausea and vomiting, improved on current treatment. 4. Generalized debility. Improved. 5. Hypertension. 6. Hyponatremia. 7. Hypokalemia. PLAN: 1. Acute encephalopathy, resolved. This could be mainly from medication interaction as she was taking Ativan with Sudafed and cough medication which could have led to some mild confusion at the time of admission. The patient had a negative CT scan, and negative MRI scan, negative CSF analysis. No evidence of meningitis noted. 2. Acute sinusitis. We tried to treat her with oral antibiotic with Augmentin, but patient was unable to tolerate any oral medication which was causing her nausea and vomiting, so switched her to IV Zosyn. We will continue the same. Await cultures. 3. Hypertension. The patient tends to have elevated blood pressure at times. We will resume her hydrochlorothiazide at this time. We will continue with clonidine as needed for systolic blood pressure greater than 160. 4. Deep vein thrombosis prophylaxis. Continue Lovenox for deep vein thrombosis prophylaxis. 5. Hypokalemia, improved with oral potassium chloride. We will recheck a basic metabolic panel in a.m. 6. Nausea and vomiting, improving. We will continue with the Reglan and Zofran as needed for her nausea and vomiting. 7. The patient is encouraged to drink and eat. 8. The patient will be encouraged to ambulate around. 9. Discussed with family members at bedside. 10.Possible discharge in a.m. if she remains hemodynamically stable. [facility] /[id number]
[2017-09-10] MEDS: atorvaSTATin 20 MG Tab PO SCH (21:05)
[2017-09-10] MEDS: LORazepam 0.5 MG Tab PO PRN (21:51)
[2017-09-11] MEDS: Piperacillin/Tazobactam 3.375 GM in Sodium Chloride 0.9% 100 ML IV SCH ×2 (00:23→05:51)
[2017-09-11] MEDS: Omeprazole 20 MG Cap.CR PO SCH (05:46)
[2017-09-11] MEDS: Metoclopramide 10 MG/2 ML SDV IVPUSH SCH (05:47)
[2017-09-11] MEDS: Ondansetron 4 MG/2 ML SDV IV SCH (05:49)
[2017-09-11 07:16] LABS: CHLORIDE,CL 100 mmol/L (101-111); SODIUM,NA 134 mmol/L (135-145)
[2017-09-11] MEDS: Enoxaparin 40 MG/0.4 ML Syringe SUBCUT SCH (08:40)
[2017-09-11] MEDS: Pantoprazole 40 MG Vial IVPUSH SCH (08:40)
[2017-09-11] MEDS: Calcium Carbonate/Vitamin D3 1250 MG-200 Unit Tab PO SCH (08:40)
[2017-09-11] MEDS: Multivitamins,Therapeutic Tab PO SCH (08:40)
[2017-09-11] MEDS: Loratadine 10 MG Tab PO SCH (08:41)
[2017-09-11] MEDS: Potassium Chloride 10% 20 MEQ/15 ML Soln 15 ML UD Cup PO SCH (08:41)
[2017-09-11] MEDS: Cholecalciferol (Vitamin D3) 400 Unit Tab PO SCH (08:41)
[2017-09-11] MEDS ORDERED: Metoclopramide 10 MG/2 ML SDV IVPUSH PRN (10:40)
[2017-09-11] MEDS ORDERED: guaiFENesin 100 MG/5 ML Soln 5 ML UD Cup PO PRN (11:56)
[2017-09-11] MEDS: Amoxicillin/Clavulanate K 500-125 MG Tab PO SCH ×2 (12:25→20:30)
[2017-09-11] MEDS: Hydrochlorothiazide 25 MG Tab PO SCH (12:25)
--- NOTE | 2017-09-11 14:54 | PN ---
DATE: 09/11/2017 HISTORY OF PRESENT ILLNESS: Mrs. Kirti Marie is a 72-year-old female, who was admitted to the hospital with acute encephalopathy and acute sinusitis. For the last 24 hours, the patient has coughing spells. She denies any headaches at this time. No chest pain. No shortness of breath. She complains of having postnasal drips. She denies any diarrhea. No nausea. No vomiting. No abdominal pain. REVIEW OF SYSTEMS: Cardiovascular respiratory, gastrointestinal, neurology, constitutional were all evaluated. PHYSICAL EXAMINATION: Vital Signs: Temperature of 98.3, pulse of 66, blood pressure 133/67, respiratory rate of 20, saturating at 100%. General Appearance: The patient is well oriented to time, place, and person. Follows commands spontaneously. Cardiovascular System: S1, S2 heard with normal intensity. No gallops. Respiratory System: Clear to auscultation bilaterally. No wheeze. No crepitations. Abdomen: Soft. Bowel sounds positive. Nontender. No rigidity. Extremities: No edema in bilateral lower extremities. NEUROLOGY: No gross focal neurological deficit. MEDICATIONS: Continue with: 1. Tylenol 650 every 4 hours as needed for pain. 2. Augmentin 500 mg 1 tab q.12 hourly. 3. Lipitor 40 mg at bedtime. 4. Calcium carbonate and vitamin D, 2 tablets daily. 5. Vitamin D3, 1000 units daily. 6. Clonidine 0.1 mg every 8 hours as needed for systolic blood pressure greater than 160. 7. Benadryl 25 mg IV q.6 hours as needed for congestion. 8. Lovenox 40 mg daily. 9. Robitussin 100 mg oral every 6 hours as needed for cough. 10.Hydrochlorothiazide 25 mg daily. 11.Claritin 10 mg daily. 12.Ativan 0.5 mg twice a day as needed for anxiety. 13.Reglan 5 mg IV every 8 hours as needed for nausea, vomiting. 14.Omeprazole 40 mg daily. 15.Zofran IV every 8 hours as needed for nausea, vomiting. 16.Percocet 5/325 mg every 4 hours as needed. 17.Potassium chloride 20 mEq twice a day. 18.Effexor 75 mg twice a day. LABORATORY DATA: Reviewed. Sodium 134, potassium 4.1, chloride 100, bicarb 26, BUN 14, creatinine 0.8. Glucose 96. ASSESSMENT: 1. Acute encephalopathy, resolved. 2. Acute sinusitis, improved with antibiotics. 3. Hypertension. 4. Hypokalemia. 5. Hyponatremia. 6. Nausea and vomiting, improved on treatment. 7. Cough, secondary to postnasal drip. 8. Generalized debility, improving. PLAN: 1. Acute encephalopathy, resolved. This is mainly from medication interactions with Sudafed and Ativan which she took prior to coming to the hospital which is resolved at this time. 2. Acute sinusitis. The patient continues to have postnasal drip. She had an MRI scan and also the CT scan of the head, which showed evidence of sinusitis. We will continue the Augmentin. We will switch her to oral Augmentin. She was on IV Zosyn. 3. Nausea and vomiting, improved. We will switch Reglan to as needed basis, and we will continue with Zofran as needed for nausea and vomiting. 4. Generalized debility, improving. The patient is able to ambulate around. 5. Hypertension, improved. We will restart her hydrochlorothiazide. Continue with clonidine 0.1 mg as needed for systolic blood pressure greater than 160. 6. Hyponatremia, improved. 7. Hypokalemia, improved. 8. We will check a basic metabolic panel in the a.m. 9. Discussed with family members at bedside. 10.Possible discharge in a.m. if she remains hemodynamically stable. [facility] /[id number]
[2017-09-11] MEDS: atorvaSTATin 20 MG Tab PO SCH (20:31)
[2017-09-11] MEDS: LORazepam 0.5 MG Tab PO PRN (21:59)
[2017-09-12] MEDS ORDERED: Pantoprazole 40 MG Tab.CR PO SCH (06:00)
[2017-09-12 08:02] VITALS: BP 131/76
[2017-09-12] MEDS: Loratadine 10 MG Tab PO SCH (08:42)
[2017-09-12] MEDS: Multivitamins,Therapeutic Tab PO SCH (08:42)
[2017-09-12] MEDS: Cholecalciferol (Vitamin D3) 400 Unit Tab PO SCH (08:43)
[2017-09-12] MEDS: Amoxicillin/Clavulanate K 500-125 MG Tab PO SCH (08:43)
[2017-09-12] MEDS: Hydrochlorothiazide 25 MG Tab PO SCH (08:43)
[2017-09-12] MEDS: Calcium Carbonate/Vitamin D3 1250 MG-200 Unit Tab PO SCH (08:43)
[2017-09-12] MEDS: Enoxaparin 40 MG/0.4 ML Syringe SUBCUT SCH (08:44)
[2017-09-12] MEDS ORDERED: Potassium Chloride 10% 20 MEQ/15 ML Soln 15 ML UD Cup PO SCH (09:00)
--- NOTE | 2017-09-13 09:20 | DISCH ---
ADMITTING DIAGNOSES: 1. Acute encephalopathy. 2. Hypertension. DISCHARGE DIAGNOSES: 1. Acute encephalopathy, resolved. 2. Acute sinusitis, improved. 3. Hyponatremia, resolved. 4. Hypokalemia, acute, resolved. 5. Hypertensive episode, treated with IV fluids. 6. Nausea and vomiting, improved with medications. 7. Generalized debility, improved at this time. HISTORY OF PRESENT ILLNESS: Mrs. 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 The patient had a CT scan of the head and also an MRI scan of the brain on this admission. CT scan of the head showed evidence of acute sinusitis, but no acute intracranial pathology, and so MRI did not show any evidence of acute intracranial pathology. Given her acute confusion and mild low-grade fevers, the patient underwent a lumbar puncture. Her CSF analysis is completely benign without any evidence of signs of infection. She was started on IV antibiotic initially with meropenem, she responded well to the treatment. Her hospital course was complicated with nausea and vomiting and unable to tolerate any oral pills, so we had to change her to IV medications including IV Protonix, IV Zofran, IV Benadryl, and she was also noted to be hypotensive on this admission, requiring IV fluids. She was having nausea and vomiting requiring IV Zofran and IV Reglan. She responded well to the treatment. She was also noted to have hyponatremia and hypokalemia secondary to nausea and vomiting. She responded well to the IV fluids and potassium chloride supplement. We were able to add back the hydrochlorothiazide at the time of discharge. She responded well to the treatment. She remained hemodynamically stable on this admission. She is discharged home in stable condition. She is advised to follow with her primary care physician in next 1 week of time. DISCHARGE MEDICATIONS: Include, 1. Tylenol 1000 mg every 6 hours as needed for pain and fever. 2. Augmentin 500/125 mg every 12 hours for next 1 week. 3. Calcium carbonate with vitamin D, two tablets daily. 4. Cetirizine 10 mg daily. 5. Vitamin D3 one tablet daily. 6. Nexium 40 mg daily. 7. Hydrochlorothiazide 12.5 mg daily. 8. Ativan 0.5 mg twice a day as needed for anxiety. 9. Multivitamin one tablet daily. 10.Zofran 4 mg oral every 4 hours as needed for nausea and vomiting. 11.Potassium chloride 20 mEq daily for next 1 week. 12.Effexor 75 mg twice a day. 13.Lipitor one tablet at bedtime. 14.Robitussin 100 mg every 6 hours as needed for cough for 1 week. PHYSICAL EXAMINATION: On the day of discharge, VITAL SIGNS: Temperature of 98, pulse of 65, blood pressure 131/76, respiratory rate of 16, saturating at 99% on room air. GENERAL APPEARANCE: The patient is well oriented to time, place, and person. Follows commands spontaneously. CARDIOVASCULAR SYSTEM: S1, S2 heard with normal intensity. No gallops. RESPIRATORY SYSTEM: Clear to auscultation bilaterally. No wheeze. No crepitations. ABDOMEN: Soft. Bowel sounds positive. Nontender. No rigidity. EXTREMITIES: No edema bilateral lower extremities. NEUROLOGY: No gross focal neurological deficit. CONDITION ON ADMISSION: Poor. CONDITION ON DISCHARGE: Stable. ACTIVITY: As tolerated. DIET: Cardiac healthy diet. Follow up with primary care physician in next 1 week of time. Spent over 35 minutes of time in evaluating and treating this patient and making discharge plans. [facility] /[id number]
== END 2017-09-12 14:00 | disposition home or self-care (01) | DRG 71 ==
LOC: DL.ED 10:35 → INTOOBSV 12:54 → UNDOADMOB 12:54 → DL.MS 12:54 → OBSVTOIN 09-07 12:15
PROVIDERS: ADMIT Internal Medicine; ATTEND Internal Medicine
PROC: 00JU3ZZ Inspection of Spinal Canal, Percutaneous Approach (ICD-10-PCS; principal; 2017-09-06)
DX: G93.40 Encephalopathy, unspecified (principal); E87.1 Hypo-osmolality and hyponatremia; J01.90 Acute sinusitis, unspecified; E78.1 Pure hyperglyceridemia; K21.9 Gastro-esophageal reflux disease without esophagitis; M35.3 Polymyalgia rheumatica; M50.30 Other cervical disc degeneration, unspecified cervical region; D05.10 Intraductal carcinoma in situ of unspecified breast; Z87.440 Personal history of urinary (tract) infections; E78.5 Hyperlipidemia, unspecified; I10 Essential (primary) hypertension; M79.7 Fibromyalgia; E87.6 Hypokalemia; R53.81 Other malaise; R11.2 Nausea with vomiting, unspecified; R51 Headache; H54.7 Unspecified visual loss; Z88.5 Allergy status to narcotic agent; Z79.899 Other long term (current) drug therapy
CPT/HCPCS: 36415; 62270-QZ; 70450; 70551; 71045; 80048; 80053; 80305; 81001; 82140; 82550; 82945; 82962; 83605; 83735; 84157; 84484; 85025; 85027; 87040; 87070; 87081; 87205; 87430; 87529; 87804; 89050; 93005; 93010; 96361; 96372; 96374; 96375; 99284; 99285; A9270-GY; C9113; G0378; G0480; J0696; J1200; J1650; J2405; J2543; J2765; J3010; J7030; J7050

== ENCOUNTER 2024-11-27 06:54 | Day surgery (SDC) | payer MEDICARE, BC ==
[2024-11-27] MEDS: Dextrose 5%-0.45% NaCl 1,000 ML IV SCH (07:31)
[2024-11-27] MEDS ORDERED: fentaNYL 100 MCG/2 ML SDV ONE (07:34)
[2024-11-27] MEDS ORDERED: fentaNYL 100 MCG/2 ML SDV IV ONE (07:34)
[2024-11-27] MEDS ORDERED: Midazolam 1 MG/ML 2 ML SDV IV ONE (07:34)
[2024-11-27] MEDS ORDERED: Midazolam 1 MG/ML 2 ML SDV ONE (07:34)
[2024-11-27] MEDS: fentaNYL 100 MCG/2 ML SDV IV ONE ×2 (08:30)
[2024-11-27] MEDS: Midazolam 1 MG/ML 2 ML SDV IV ONE ×3 (08:31→08:33)
[2024-11-27 15:08] VITALS: BP 136/70; PULSE 64
== END 2024-11-27 10:13 | disposition home or self-care (01) ==
LOC: DL.ENDO 06:54
PROVIDERS: ATTEND Internal Medicine Gastroenterology
DX: K29.50 Unspecified chronic gastritis without bleeding (principal); K31.89 Other diseases of stomach and duodenum; R13.10 Dysphagia, unspecified; I10 Essential (primary) hypertension
CPT/HCPCS: 43239; J2250; J3010; 88305

== ENCOUNTER 2025-06-01 05:52 | Day surgery (SDC) | payer MEDICARE, BC ==
[2025-06-01] MEDS ORDERED: Propofol 200 MG/20 ML SDV IV ONE (05:53)
[2025-06-01] MEDS: Lactated Ringers 1,000 ML IV SCH (06:29)
[2025-06-01 09:13] VITALS: BP 159/72; PULSE 63
[2025-06-01] MEDS ORDERED: Propofol 200 MG/20 ML SDV ONE (09:50)
== END 2025-06-01 09:32 | disposition home or self-care (01) ==
LOC: DL.SDS 05:52
PROVIDERS: ATTEND Internal Medicine Gastroenterology
DX: Z12.11 Encounter for screening for malignant neoplasm of colon (principal); K57.30 Diverticulosis of large intestine without perforation or abscess without bleeding; I10 Essential (primary) hypertension; K21.9 Gastro-esophageal reflux disease without esophagitis; E78.00 Pure hypercholesterolemia, unspecified; Z88.5 Allergy status to narcotic agent; Z88.8 Allergy status to other drugs, medicaments and biological substances; Z80.0 Family history of malignant neoplasm of digestive organs; Z79.899 Other long term (current) drug therapy
CPT/HCPCS: J2003; J2704; J7120; S5010